=== PATIENT | female | born 1955 | race Two or more races ===

== ENCOUNTER 2025-04-20 12:28 | Emergency (ER) | payer OTHER, SELFPAY ==
[2025-04-20 12:28] VITALS: BMI 35.3
[2025-04-20 12:38] VITALS: BP 149/75; PULSE 64; RESP 16; TEMP 36.8; O2SAT 97
--- NOTE | 2025-04-20 13:14 | EDNOTE_ITS ---
<Statement entered by Ewa Mireles MD - 04/20/25 14:45> As co-signing physician, I was present and available for consult prn. I concur with the plan and care as documented by the midlevel provider. ED General RME/HPI General Chief complaint: General Adult/Misc Complain Stated complaint: L SIDE FACIAL SWELLING SINCE LAST NIGHT Time Seen by Provider: 04/20/25 12:35 Arrival date/time: 04/20/25 12:28 69-year-old female patient came in for evaluation regarding left lower premolar dental cavity with pain and tenderness, severity moderate. Onset of symptoms since last night, patient woke up this morning with swelling to the left side of the mandibular area. No fever. No difficulty swallowing. No other complaints noted. Related Data Home Medications ?Medication ?Instructions ?Recorded ?Confirmed albuterol sulfate 200 mcg capsule 200 mcg inhalation Q 4H PRN 04/04/22 04/04/22 with inhalation device Shortness Of Breath Previous Rx's ?Medication ?Instructions ?Recorded ondansetron 4 mg disintegrating 4 mg PO Q8H PRN nausea and 04/06/22 tablet vomiting #7 tabs tramadol 50 mg tablet 50 mg PO Q6H PRN pain #10 ta bs 04/06/22 clindamycin HCl 300 mg capsule 300 mg PO TID #21 caps 04/20/25 (Cleocin HCl) ibuprofen 800 mg tablet 800 mg PO Q8H PRN pain #30 t abs 04/20/25 Allergies Allergy/AdvReac Type Severity Reaction Status Date / Time No Known Allergies Allergy Verified 04/20/25 12:30 Review of Systems Review of Systems Narrative Review of Systems: Review of system reviewed and within normal limits except mentioned in HPI ED Exam Narrative Physical exam: VITAL SIGNS: Reviewed. GENERAL APPEARANCE: Alert and interactive, follows commands, no acute distress, HEAD AND FACE: Left submandibular swelling, nonfluctuant. With tenderness ENT: PERRL, pink conjunctivitis, eyelid no trauma, Mucous membrane moist. Dental cavity noted to the left lower premolar, nonfluctuant, NECK: Supple, nontender, no nuchal rigidity. CHEST: No tenderness, no crepitus, no paradoxical movement, no retractions. LUNGS: Clear, well ventilated, symmetric, no rales, no wheezing, no ronchi, no stridor, good breath sounds bilaterally. HEART: Regular rate, regular rhythm, no murmur, no gallops. ABDOMEN: Soft, positive bowel sounds, nondistended, no guarding, nontender, no rebound, no masses, RECTAL: Deferred. GENITAL: Deferred. NEUROLOGICAL: Gross motor function intact sensory function intact, Appropriate for age. MUSCULOSKELETAL: low back nontender, full range of motion. EXTREMITIES: Nontender, full range of motion. SKIN: Color pink, dry, no rash, no lacerations, no abrasions, no contusions. LYMPHATICS: Deferred. Course Quality Measures none Orders Category Date Time Status Ketorolac Inj [Toradol Inj] Med 04/20/25 13:07 Discontinued 30 mg IM X1 ONE cefTRIAXone [Rocephin] 1,000 mg Med 04/20/25 13:07 Discontinued Lidocaine 1% 20 ml [Xylocaine 1% 20 ML] 2.1 ml IM X1 Vital Signs Vital signs: Vital Signs Temperature 98.3 F 04/20/25 12:38 Pulse Rate 64 04/20/25 12:38 Respiratory Rate 16 04/20/25 12:38 Blood Pressure 149/75 H 04/20/25 12:38 Pulse Oximetry (%) 97 04/20/25 12:38 Oxygen Delivery Method Room Air 04/20/25 12:38 Discharge Plan Plan Patient Disposition: HOME (Self Care) Discharge Disposition comment: stable, Prescriptions/Referrals Prescriptions/Med Rec: New clindamycin HCl [Cleocin HCl] 300 mg capsule 300 mg PO TID Qty: 21 0RF ibuprofen 800 mg tablet 800 mg PO Q8H PRN (Reason: pain) Qty: 30 0RF No Action albuterol sulfate 200 mcg Capsule, W/Inhalation Device 200 mcg INHALATION Q4H PRN (Reason: Shortness Of Breath) Rx Instructions: 2 puffs q4 hours as needed for SOB/wheezing. ondansetron 4 mg tablet,disintegrating 4 mg PO Q8H PRN (Reason: nausea and vomiting) Qty: 7 0RF tramadol 50 mg tablet 50 mg PO Q6H PRN (Reason: pain) Qty: 10 0RF Problem List Clinical Impression: Infected dental caries, Abscess, dental Patient/Caregiver Discharge Instructions Discharge Activity: activity as tolerated Education Materials: ED Abscess Antibiotic ... Additional Instructions: Thank you for the opportunity for serving you today. You are stable for discharged . You are advised to: Follow-up with your dentist in 1 to 2 days Return to ED for worsening of symptoms Increase oral fluids Take medication as prescribed apply warm compress for 15 minutes 3 times a day as needed Print Language: Vietnamese Stand Alone Forms: [facility] Info., Patient Portal Info Letter MDM Narrative MDM hospital course (for use when minimal MDM required): 69-year-old female patient came in for evaluation regarding left lower premolar dental cavity with pain and tenderness, severity moderate. Onset of symptoms since last night, patient woke up this morning with swelling to the left side of the mandibular area. No fever. No difficulty swallowing. No other complaints noted. I&D started at this time. Patient was given ceftriaxone IM in the emergency room, I will send this patient home on clindamycin p.o. Patient was advised to see a dentist this coming Tuesday. Medication Administration(s) Medication Administration History Discontinued Medications Ceftriaxone Sodium 1,000 mg/ (Lidocaine HCl 2.1 ml) 0 mg IM X1 ONE Stop: 04/20/25 13:08 Ketorolac Tromethamine (Ketorolac Inj 30 Mg/Ml Vial) 30 mg IM X1 ONE Stop: 04/20/25 13:08 Toradol and ceftriaxone IM Diagnosis Differential Diagnosis ED Complaint MDM: Infected dental caries, dental abscess Diagnoses ruled out and/or further discussions: Infected dental caries
[2025-04-20] MEDS: KETOROLAC INJ 30 MG/ML VIAL IM (13:23)
[2025-04-20] MEDS: cefTRIAXone 1,000 MG, LIDOCAINE 1% 20 ML 2.1 ML IM (13:24)
== END 2025-04-20 13:51 | disposition home or self-care (01) ==
LOC: SERX 13:52
PROVIDERS: Emergency Provider Emergency Medicine; PCP Family Medicine
DX: K04.7 Periapical abscess without sinus (principal); K02.9 Dental caries, unspecified
CPT/HCPCS: 10060; 96372; 99282; J0696; J1885; J3490